=== PATIENT | male | born 2000 | race Caucasian/White ===

== ENCOUNTER 2019-04-22 16:48 | Emergency (ER) | payer BC ==
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
== END 2019-04-22 18:40 | disposition home or self-care (01) ==
LOC: FB.ED 16:48
DX: R51 Headache (principal); V69.9XXA Occupant (driver) (passenger) of heavy transport vehicle injured in unspecified traffic accident, initial encounter; Y92.410 Unspecified street and highway as the place of occurrence of the external cause
CPT/HCPCS: 70450; 99284-25